=== PATIENT | male | born 1940 | race Caucasian/White ===

== ENCOUNTER 2017-12-11 07:37 | Day surgery (SDC) | payer OTHER ==
[2017-12-11] MEDS: BETADINE OPTH PREP OP PRN ×2 (08:20→09:19)
[2017-12-11] MEDS: CYCLOGYL 2% OPTH OP PRN ×3 (08:20→08:30)
[2017-12-11] MEDS: TETRACAINE 0.5% UNIT-DOSE OP PRN ×3 (08:20→09:33)
[2017-12-11] MEDS ORDERED: BRIMONIDINE TARTRATE 0.2% OPTH SOL OP PRN (08:28)
[2017-12-11] MEDS ORDERED: DEX-MOXI-KETOR OPTH INJ 1/0.5/0.4 MG/ML IO ONE (08:28)
[2017-12-11] MEDS ORDERED: ZOFRAN 4 MG/2 ML IVP ONE (08:28)
[2017-12-11] MEDS ORDERED: BSS WITH EPINEPHRINE OP ONE (08:28)
[2017-12-11] MEDS ORDERED: LIDOCAINE 1%/PHENYLEPHRINE 1.5% BSS (SURGERY) INTRAOCULA ONE (08:28)
[2017-12-11] MEDS ORDERED: LIDOCAINE 1% 20 ML MDV ID STA (08:28)
[2017-12-11] MEDS ORDERED: DIPRIVAN 20 ML VIAL IVP ONE (09:25)
[2017-12-11] MEDS ORDERED: SUBLIMAZE ONE (09:25)
[2017-12-11] MEDS ORDERED: VERSED ONE (09:25)
[2017-12-11 13:35] VITALS: BP 132/67
== END 2017-12-11 10:35 | disposition home or self-care (01) ==
LOC: SURG 07:37
PROVIDERS: ATTEND Ophthalmology
DX: H25.812 Combined forms of age-related cataract, left eye (principal)

== ENCOUNTER 2017-12-25 08:33 | Day surgery (SDC) ==
[2017-12-25] MEDS: BETADINE OPTH PREP OP PRN ×2 (09:32→09:57)
[2017-12-25] MEDS: TETRACAINE 0.5% UNIT-DOSE OP PRN ×3 (09:32→10:09)
[2017-12-25] MEDS: CYCLOGYL 2% OPTH OP PRN ×3 (09:33→09:43)
[2017-12-25] MEDS ORDERED: BRIMONIDINE TARTRATE 0.2% OPTH SOL OP PRN (09:35)
[2017-12-25] MEDS ORDERED: LIDOCAINE 1% 20 ML MDV ID STA (09:35)
[2017-12-25] MEDS ORDERED: ZOFRAN 4 MG/2 ML IVP ONE (09:35)
[2017-12-25 09:40] VITALS: TEMP 97.6
[2017-12-25] MEDS: LIDOCAINE 1%/PHENYLEPHRINE 1.5% BSS (SURGERY) INTRAOCULA ONE ×2 (09:57→10:11)
[2017-12-25] MEDS: DEX-MOXI-KETOR OPTH INJ 1/0.5/0.4 MG/ML IO ONE ×2 (09:57→10:11)
[2017-12-25] MEDS: BSS WITH EPINEPHRINE OP ONE ×2 (09:57→10:11)
[2017-12-25] MEDS ORDERED: VERSED ONE (10:00)
[2017-12-25] MEDS ORDERED: SUBLIMAZE ONE (10:00)
[2017-12-27 15:21] VITALS: BP 132/65
== END 2017-12-25 11:00 | disposition home or self-care (01) ==
LOC: SURG 08:33
PROVIDERS: ATTEND Ophthalmology
DX: H25.811 Combined forms of age-related cataract, right eye (principal)